=== PATIENT | male | born 1955 | race Caucasian/White ===

== ENCOUNTER → 2021-10-12 | Outpatient (CLI) | payer BC ==
[~2021-10-12] MED LIST: AMLODIPINE BESYL5 MG PO; COZAAR100 MG PO; DOXAZOSIN MESYLA4 M1 PO; METHYLPREDNISONE4 MG PO; SINGULAIR PO; TENORMIN25 MG PO; TESTOSTERO200 MG/1 M IM; ZITIA PO
== END ==
LOC: AMSURD 08:18
DX: I10 Essential (primary) hypertension (principal)

== ENCOUNTER → 2021-11-28 | Outpatient (CLI) | payer BC ==
[2021-11-28 08:30] LABS: BASO # 0.05 K/mm3 (0.02-0.10); EOS # 0.22 K/mm3 (0.04-0.40); EOS % 3.6 % (0.0-4.0); HEMATOCRIT 32.1 % (42.0-52.0); MEAN CELL VOLUME 94 fl (78-100); MEAN CORPUSCULAR HEMOGLOBIN 32 pg (27-31); MEAN CORPUSCULAR HGB CONC 34 g/dL (33-37); MEAN PLATELET VOLUME 8.6 fl (7.4-10.4); MONO # 0.68 K/mm3 (0.20-0.80); NEU # 3.84 K/mm3 (1.40-6.50); PLATELET COUNT 196 K/mm3 (130-400); RED BLOOD COUNT 3.41 M/mm3 (4.20-5.60); RED CELL DISTRIBUTION WIDTH 13.8 % (11.5-14.5); WHITE BLOOD COUNT 6.1 K/mm3 (4.8-10.8)
[2021-11-28 09:03] LABS: ALBUMIN 4.1 g/dL (3.4-4.8); POTASSIUM 4.4 mmol/L (3.5-5.1)
[2021-11-28 09:04] LABS: CALCIUM 9.7 mg/dL (8.3-10.5)
[2021-11-28 09:05] LABS: TOTAL PROTEIN 7.1 g/dL (6.2-8.1)
[2021-11-28 09:07] LABS: TOTAL BILIRUBIN 0.7 mg/dL (0.2-1.2)
== END ==
LOC: LAB 08:07
PROVIDERS: Family Medicine
DX: D64.9 Anemia, unspecified (principal); E87.1 Hypo-osmolality and hyponatremia; I27.0 Primary pulmonary hypertension; I48.0 Paroxysmal atrial fibrillation

== ENCOUNTER → 2022-12-07 | Outpatient (CLI) | payer BC ==
[~2022-12-07] VITALS: Ht 177.8 cm; Wt 75.0 kg
[2022-12-07 10:04] VITALS: BP 171/98
[2022-12-07 10:43] VITALS: BP 153/86
[2022-12-07 11:59] VITALS: BP 140/84
--- NOTE | 2022-12-07 12:00 | NUR ---
Pt states that he is feeling "ok" and has no complaints or concerns at this time. Pt resting in bed, call light in reach.
== END ==
LOC: AMSURD 09:49
DX: E86.0 Dehydration (principal)
CPT/HCPCS: J7042

== ENCOUNTER → 2022-12-14 | Outpatient (CLI) | payer BC ==
[~2022-12-14] VITALS: Ht 177.8 cm; Wt 75.0 kg
[2022-12-14 11:40] VITALS: BP 145/96
[2022-12-14 13:52] VITALS: BP 147/91
== END ==
LOC: AMSURD 11:03
DX: E86.0 Dehydration (principal)
CPT/HCPCS: J7030

== ENCOUNTER → 2022-12-21 | Outpatient (CLI) | payer BC ==
[2022-12-21 09:50] LABS: BASO # 0.02 K/mm3 (0.02-0.10); EOS # 0.05 K/mm3 (0.04-0.40); HEMATOCRIT 33.2 % (42.0-52.0); HEMOGLOBIN 10.9 g/dL (13.5-18.0); LYMPH# 1.41 K/mm3 (1.50-4.00); MEAN CELL VOLUME 96 fl (78-100); MEAN CORPUSCULAR HEMOGLOBIN 32 pg (27-31); MEAN CORPUSCULAR HGB CONC 33 g/dL (33-37); MEAN PLATELET VOLUME 8.5 fl (7.4-10.4); MONO # 0.82 K/mm3 (0.20-0.80); NEU # 2.65 K/mm3 (1.40-6.50); PLATELET COUNT 307 K/mm3 (130-400); RED BLOOD COUNT 3.46 M/mm3 (4.20-5.60); RED CELL DISTRIBUTION WIDTH 13.3 % (11.5-14.5)
[2022-12-21 09:54] LABS: POTASSIUM 4.7 mmol/L (3.5-5.1)
[2022-12-21 09:55] LABS: CALCIUM 9.3 mg/dL (8.3-10.5)
[2022-12-21 10:01] LABS: PROTHROMBIN TIME 21.9 SECONDS (9.0-12.0)
== END ==
LOC: LAB 09:30
DX: Z01.812 Encounter for preprocedural laboratory examination (principal); I48.0 Paroxysmal atrial fibrillation; Z79.01 Long term (current) use of anticoagulants

== ENCOUNTER 2023-04-23 07:45 | Outpatient (RCR) | payer BC ==
[~2023-04-23 07:45] MED LIST changes: +ALPRAZOLAM0.25 MG PO; +AMIODARONE200 MG PO; +ASPIRIN E.C. 8181 MG; +ATENOLOL50 MG PO; +CARDIZEM CD 24240 MG PO; +CETIRIZINE HCL10 MG PO; +CLOPIDOGREL PO; +FERROUS SULFAT325 M4 PO; +FLECAINIDE ACE100 MG PO; +FUROSEMIDE40 MG; +FUROSEMIDE40 MG PO; +LEVOTHYROXINE0.05 MG PO; +METHYLPREDNISOLO PO; +NEURONTIN300 MG/CAP; +PANTOPRAZOLE SO20 M1 PO; +POTASSIUM CHLO10 ME7 PO; +PRILOSEC 20MG20 MG PO; +PROPRANOLOL HCL40 M2 PO; +REMERON15 MG PO; +SINGULAIR 110 MG/TAB PO; +SODIUM CHLORI1000 M4 PO; +SODIUM CHLORI1000 MG MC; +SUCRALFATE1 G1 PO; +VALSARTAN80 MG PO; +VITAMIN C500 M7 PO; +XARELTO20 MG PO
== END 2023-05-23 | disposition home or self-care (01) ==
LOC: PT
DX: R29.6 Repeated falls (principal)

== ENCOUNTER → 2023-07-23 | Outpatient (RCR) | payer BC | LOC: PT | DX: R26.0 Ataxic gait (principal) ==

== ENCOUNTER 2023-07-25 07:45 | Outpatient (RCR) | payer BC | END 2023-08-22 | disposition home or self-care (01) | LOC: PT | DX: R26.0 Ataxic gait (principal) ==

== ENCOUNTER 2023-08-12 07:45 | Outpatient (RCR) | payer BC ==
[2023-07-24 13:25] VITALS: BP 111/73
[2023-07-25 08:07] VITALS: BP 143/87
--- NOTE | 2023-07-25 09:51 | NUR ---
PICC dressing loose. Removed tegaderm and antimicrobial patch. Cleansed area with chloraprep and replaced patch and tegaderm via sterile procedure.
[2023-07-26 07:55] VITALS: BP 143/85
[2023-07-28 07:50] VITALS: BP 155/92
[2023-07-29 08:18] VITALS: BP 147/94
[2023-07-30 08:22] VITALS: BP 159/101
[2023-07-31 08:18] VITALS: BP 150/92
[2023-08-01 07:56] VITALS: BP 164/69
[2023-08-02 08:14] VITALS: BP 144/86
[2023-08-03 08:08] VITALS: BP 145/92
[2023-08-04 11:35] VITALS: BP 144/81
--- NOTE | 2023-08-04 12:00 | NUR ---
PT HERE LATE TODAY DUE TO AN OUT OF STATE WEDDING YESTERDAY.
[2023-08-05 08:05] VITALS: BP 139/88
[2023-08-06 08:21] VITALS: BP 161/94
[2023-08-07 08:15] VITALS: BP 157/97
[2023-08-08 07:53] VITALS: BP 159/100
[2023-08-09 08:01] VITALS: BP 147/95
[2023-08-10 08:04] VITALS: BP 146/88
[2023-08-11 07:46] VITALS: BP 165/106
[~2023-08-12] VITALS: Ht 177.8 cm; Wt 79.7 kg
== END 2023-08-22 | disposition home or self-care (01) ==
LOC: AMSURD
DX: M86.622 Other chronic osteomyelitis, left humerus (principal)
CPT/HCPCS: J0696

== ENCOUNTER 2023-10-29 09:30 | Outpatient (RCR) | payer BC | END 2023-11-21 | disposition home or self-care (01) | LOC: PT | DX: R26.0 Ataxic gait (principal) ==

== ENCOUNTER → 2024-07-03 | Outpatient (CLI) | payer SELFPAY ==
[~2024-07-03] VITALS: Ht 177.8 cm; Wt 81.6 kg
== END ==
LOC: LAB 07-01 16:25
DX: R19.7 Diarrhea, unspecified (principal)